=== PATIENT | male | born 1980 | race Caucasian/White ===

== ENCOUNTER 2018-01-02 14:51 | Emergency (ER) | payer MEDICAID ==
--- NOTE | 2018-01-02 16:02 | EDM.PDOC ---
ED HPI GENERAL MEDICAL PROBLEM - General Chief Complaint: Abdominal Pain Stated Complaint: PAIN ON LEFT SIDE VERY STRONG Time Seen by Provider: 01/02/18 15:42 Source of Information: Reports: Patient History Limitations: Reports: No Limitations - History of Present Illness INITIAL COMMENTS - FREE TEXT/NARRATIVE: Axel presents to the ER today for complaints of sudden left sided abdominal pain that lasted for 10 minutes, was intermittent and is now gone. - Related Data Allergies Allergy/AdvReac Type Severity Reaction Status Date / Time No Known Allergies Allergy Verified 01/02/18 15:20 Home Meds: Home Meds NK [No Known Home Meds] 01/02/18 [History] Past Medical History - Past Health History Medical/Surgical History: Denies Medical/Surgical History Social & Family History - Tobacco Use Smoking Status *Q: Never Smoker ED ROS GENERAL - Review of Systems Review Of Systems: See Below Constitutional: Denies: Fever, Chills, Malaise, Weakness, Night Sweats, Diaphoresis HEENT: Reports: No Symptoms Respiratory: Denies: Shortness of Breath, Wheezing, Cough, Sputum Cardiovascular: Denies: Chest Pain, Dyspnea on Exertion, Edema, Lightheadedness , Palpitations, Syncope Endocrine: Denies: No Symptoms GI/Abdominal: Reports: Abdominal Pain. Denies: Black Stool, Bloody Stool, Constipation, Diarrhea, Difficulty Swallowing, Distension, Hematemesis, Nausea, Stool Incontinence, Vomiting : Denies: Dysuria, Flank Pain, Frequency, Hematuria, Incontinence, Pain, Urgency, Urinary Retention Musculoskeletal: Reports: No Symptoms Skin: Reports: Diaphoresis, Dryness, Bruising, Rash, Erythema, Wound Neurological: Denies: Confusion, Dizziness, Headache, Numbness Psychiatric: Reports: No Symptoms Hematologic/Lymphatic: Reports: No Symptoms Immunologic: Reports: No Symptoms ED EXAM, GI/ABD - Physical Exam Exam: See Below Text/Narrative:: Axel is an alert and oriented 37 year old male presenting for complaints of left sided abdominal pain. Exam Limited By: No Limitations General Appearance: Alert, WD/WN, No Apparent Distress Eyes: Bilateral: Normal Appearance, EOMI Ears: Normal External Exam, Normal Canal, Hearing Grossly Normal, Normal TMs Nose: Normal Inspection, Normal Mucosa, No Blood Throat/Mouth: Normal Inspection, Normal Lips, Normal Teeth, Normal Gums, Normal Oropharynx, Normal Voice, No Airway Compromise Head: Atraumatic, Normocephalic Neck: Normal Inspection, Supple, Non-Tender, Full Range of Motion. No: Lymphadenopathy (R), Lymphadenopathy (L) Respiratory/Chest: No Respiratory Distress, Lungs Clear, Normal Breath Sounds, No Accessory Muscle Use, Chest Non-Tender Cardiovascular: Normal Peripheral Pulses, Regular Rate, Rhythm, No Edema, No Gallop, No Murmur, No Rub GI/Abdominal Exam: Normal Bowel Sounds, Soft, Non-Tender, No Organomegaly, No Distention, No Abnormal Bruit, No Mass, Pelvis Stable. No: Rebound, Tender, Abnormal Bowel Sounds, Hernia Back Exam: Normal Inspection, Full Range of Motion. No: CVA Tenderness (R), CVA Tenderness (L) Extremities: Normal Inspection, Normal Range of Motion, Non-Tender, No Pedal Edema, Normal Capillary Refill Neurological: Alert, Oriented, CN II-XII Intact, Normal Cognition, Normal Gait, No Motor/Sensory Deficits Psychiatric: Normal Affect, Normal Mood Skin Exam: Warm, Dry, Intact, Normal Color, No Rash Lymphatic: No Adenopathy Course - Vital Signs Last Recorded V/S: Last Vital Signs Temp 36.4 C 01/02/18 15:26 Pulse 58 L 01/02/18 15:26 Resp 14 01/02/18 15:26 BP 127/87 01/02/18 15:26 Pulse Ox 96 01/02/18 15:26 - Orders/Labs/Meds Orders: Active Orders 24 hr Category Date Time Status UA W/MICROSCOPIC [URIN] Stat Lab 01/02/18 15:51 Ordered Labs: Laboratory Tests 01/02/18 Range/Units 15:51 Urine Color Yellow Urine Appearance Clear Urine pH 5.0 (4.5-8.0) Ur Specific [place] 1.025 (1.008-1.030) Urine Protein Negative (NEGATIVE) mg/dL Urine Glucose (UA) Normal (NEGATIVE) mg/dL Urine Ketones Negative (NEGATIVE) mg/dL Urine Occult Blood Negative (NEGATIVE) Urine Nitrite Negative (NEGAITVE) Urine Bilirubin Negative (NEGATIVE) Urine Urobilinogen Normal (NORMAL) mg/dL Ur Leukocyte Esterase Negative (NEGATIVE) Urine RBC 0-5 (0-5) Urine WBC Not seen (0-5) Ur Epithelial Cells Not seen Amorphous Sediment Rare Urine Bacteria Not seen Urine Mucus Not seen - Re-Assessments/Exams Free Text/Narrative Re-Assessment/Exam: 01/02/18 16:27 UA reviewed with patient, no further episodes of pain while in the Emergency room. Vital signs stable. Patient offered additional lab work and CT scan for further work up. He declined at this time. Patient could have been suffering from passing a kidney stone. Departure - Departure Time of Disposition: 16:28 Disposition: Home, Self-Care 01 Condition: Good Clinical Impression: Abdominal pain - Discharge Information Instructions: Abdominal Pain, Adult, [id number], Flank Pain, Adult, Easy-to- Read Referrals: Jordan Duran MD [Primary Care Provider] - Forms: ED Department Discharge Additional Instructions: You have been evaluated and treated in the emergency room today for left sided abdominal pain that resolved without intervention. UA was positive for RBC. You could have been passing a kidney stone. Take ibuprofen 600mg to 800mg as needed for pain up to three times a day. Return for worsening, fever, chills, nausea, vomiting, bloody emesis or stools. Follow up with your primary provider in the next 3 to 7 days for recheck. - My Orders Last 24 Hours: My Active Orders 01/02/18 15:51 UA W/MICROSCOPIC [URIN] Stat - Assessment/Plan Last 24 Hours: My Active Orders 01/02/18 15:51 UA W/MICROSCOPIC [URIN] Stat Assessment:: Left abdominal pain/flank pain Vitals stable UA + RBC Possible renal stone Plan: Patient evaluated and treated in the emergency room today for left sided abdominal pain that resolved without intervention. UA was positive for RBC. Possible kidney stone. Take ibuprofen 600mg to 800mg as needed for pain up to three times a day. Return for worsening, fever, chills, nausea, vomiting, bloody emesis or stools. Follow up with his primary provider in the next 3 to 7 days for recheck.
== END 2018-01-02 17:40 | disposition home or self-care (01) ==
LOC: JP.ED 14:51
DX: R10.9 Unspecified abdominal pain (principal)
CPT/HCPCS: 81001; 99284